=== PATIENT | female | born 1975 | race Hispanic/Latino ===

== ENCOUNTER 2017-11-05 03:15 | Emergency (ER) | payer SELFPAY ==
[2017-11-05 03:27] VITALS: RESP 16; TEMP 98.1
[2017-11-05] MEDS ORDERED: Hydrogen Peroxide 3% Soln (480ml) TP ONE (03:45)
--- NOTE | 2017-11-05 04:23 | ED PDOC ---
HPI: Psych/Substance Abuse Time Seen by Provider: 11/05/17 03:19 Chief Complaint (Nursing): Alcohol Ingestion Chief Complaint (Provider): alcohol intoxication ED Caveat: Intoxicated History Per: Patient, EMS History/Exam Limitations: intoxication Onset/Duration Of Symptoms: Unknown Modifying Factor(s): Alcohol Severity: Moderate Involuntary Hold By: Emergency Physician Additional Complaint(s): Patient is 42 year old female BIB EMS for evaluation of intoxication and head injury. She was reported to have fallen and injured head. Past Medical History Reviewed: Historical Data, Nursing Documentation, Vital Signs, Unable To Obtain Vital Signs: Last Vital Signs Temp 98.1 F 11/05/17 03:22 Pulse 96 H 11/05/17 03:22 Resp 16 11/05/17 03:22 BP 124/87 11/05/17 03:22 Pulse Ox 99 11/05/17 03:22 - Family History Family History: States: Unknown Family Hx - Allergies Allergies/Adverse Reactions: Allergies Allergy/AdvReac Type Severity Reaction Status Date / Time No Known Allergies Allergy Verified 11/05/17 03:26 Review of Systems Review Of Systems: ROS cannot be obtained secondary to pt's inabilty to answer questions. Physical Exam - Reviewed Nursing Documentation Reviewed: Yes Vital Signs Reviewed: Yes - Physical Exam Appears: Positive for: No Acute Distress Head Exam: Positive for: NORMOCEPHALIC. Negative for: ATRAUMATIC (right parieto -occipital hematoma is noted approximately 3x5cm) Skin: Positive for: Normal Color, Warm, Dry Eye Exam: Positive for: Normal appearance, EOMI, PERRL ENT: Positive for: Normal ENT Inspection Neck: Positive for: Normal, Painless ROM, Supple Cardiovascular/Chest: Positive for: Regular Rate, Rhythm Respiratory: Positive for: Normal Breath Sounds. Negative for: Crackles, Wheezing Gastrointestinal/Abdominal: Positive for: Normal Exam, Bowel Sounds, Soft. Negative for: Tenderness Back: Positive for: Normal Inspection. Negative for: L CVA Tenderness, R CVA Tenderness Extremity: Positive for: Normal ROM. Negative for: Tenderness, Pedal Edema Neurologic/Psych: Positive for: Oriented (x2), Other (speech is slurred ). Negative for: Alert, Motor/Sensory Deficits - Laboratory Results Result Diagrams: 11/05/17 04:15 11/05/17 04:15 - ECG O2 Sat by Pulse Oximetry: 99 Medical Decision Making Medical Decision Makin yo female with head injury in setting of alcohol intoxication Labs, CT Head/C Spine ordered Labs reviewed no clinically significant abnormalities with exception of elevated BAL Patient s/o to Dr Parada at 7AM pending sobriety and re-eval Disposition - Clinical Impression Clinical Impression: Alcohol abuse with intoxication - Patient ED Disposition Is Patient to be Admitted: Transfer of Care - Disposition Disposition: Transfer of Care Disposition Time: 07:00 Condition: FAIR Forms: [employer] (Romanian) Patient Signed Over To: Beth Parada
[2017-11-05 04:25] LABS: BASO % 0.4 % (0.0-2.0); HEMATOCRIT 40.9 % (34.0-47.0); LYMPH # 1.6 K/uL (1.0-4.3); LYMPH % 22.8 % (20.0-40.0); MEAN CELL VOLUME 95.7 fl (81.0-99.0); MEAN CORPUSCULAR HEMOGLOBIN 31.9 pg (27.0-31.0); MEAN CORPUSCULAR HGB CONC 33.4 g/dL (33.0-37.0); MONO # 0.3 K/uL (0.0-0.8); MONO % 4.7 % (0.0-10.0); NEUT # 5.2 K/uL (1.8-7.0); NEUT % 72.1 % (50.0-75.0); NRBC % 0.1 % (0.0-0.0); RED CELL DISTRIBUTION WIDTH 16.4 % (11.5-14.5); WHITE BLOOD COUNT 7.2 K/uL (4.8-10.8)
[2017-11-05 04:33] LABS: PARTIAL THROMBOPLASTIN TIME 36.1 Seconds (25.6-37.1)
[2017-11-05 04:38] LABS: ALB/GLOB RATIO 1.2 (1.0-2.1); ALKALINE PHOSPHATASE 97 U/L (38-126); ALT/SGPT 37 U/L (9-52); AST/SGOT 33 U/L (14-36); BLOOD UREA NITROGEN 8 mg/dl (7-17); CALCIUM 8.8 mg/dL (8.4-10.2); CARBON DIOXIDE 20 mmol/L (22-30); CHLORIDE 109 mmol/L (98-107); GFR AFRICAN-AMERICAN > 60; GLUCOSE,RANDOM 98 mg/dL (65-105); POTASSIUM 4.5 MMOL/L (3.6-5.0); SODIUM 144 mmol/l (132-148); TOTAL PROTEIN 7.9 G/DL (6.3-8.2)
[2017-11-05 04:49] LABS: ALCOHOL SERUM 386 mg/dl (0-10)
--- NOTE | 2017-11-05 07:29 | ED PDOC ---
- Laboratory Results Result Diagrams: 11/05/17 04:15 11/05/17 04:15 - ECG O2 Sat by Pulse Oximetry: 99 - Progress ED Course And Treament: Pt AAOX3, steady gait. Re-evaluation Time: 08:24 Condition: Improved Medical Decision Making Medical Decision Making: Patient signed out to me by Dr. Danis Thompson MD pending clinical sobriety. Reassess --08:39 Provider is made aware that there is a 1.5cm laceration on the hematoma of the posterior scalp. Scribe Attestation: Documented by Robinson Martinez acting as a scribe for Beth Parada MD. Provider Attestation: All medical record entries made by the Scribe were at my direction and personally dictated by me. I have reviewed the chart and agree that the record accurately reflects my personal performance of the history, physical exam, medical decision making, and the department course for this patient. I have also personally directed, reviewed, and agree with the discharge instructions and disposition. Disposition - Clinical Impression Clinical Impression: Alcohol intoxication, Scalp hematoma, Scalp laceration - POA Present On Arrival: Falls Or Trauma - Disposition Referrals: [facility] [Outside] Disposition: Routine/Home Disposition Time: 08:41 Condition: IMPROVED Additional Instructions: MOTRIN OR TYLENOL NEEDED FOR PAIN. STAPLE REMOVAL IN 5 DAYS. Instructions: Laceration (ED), Alcohol Intoxication (ED), Staple Care (ED), Hematoma (ED) Forms: [facility] (Swedish) Procedure: Wound Repair - Time Performed Time Performed: 08:39 - Procedure Procedure: Wound Repair: Laceration repair 4 cristobal placed - Consent Obtained Consent obtained: Verbal - Performed by Performed by: Attending Physician - Indications Indication(s):: Laceration - Location Location:: Posterior, Scalp
[2017-11-05 07:49] VITALS: BP 115/62; PULSE 108
[2017-11-05 08:24] VITALS: O2SAT 99
--- NOTE | 2017-11-05 08:36 | CT ---
PROCEDURE: CT HEAD WITHOUT CONTRAST. HISTORY: head injury COMPARISON: None available. TECHNIQUE: Axial computed tomography images were obtained through the head/brain without intravenous contrast. Radiation dose: Total exam DLP = mGy-cm. This CT exam was performed using one or more of the following dose reduction techniques: Automated exposure control, adjustment of the mA and/or kV according to patient size, and/or use of iterative reconstruction technique. FINDINGS: HEMORRHAGE: No intracranial hemorrhage. BRAIN: No mass effect or edema. No atrophy or chronic microvascular ischemic changes. VENTRICLES: Unremarkable. No hydrocephalus. CALVARIUM: Large right parietal scalp hematoma. PARANASAL SINUSES: Unremarkable as visualized. No significant inflammatory changes. MASTOID AIR CELLS: Unremarkable as visualized. No inflammatory changes. OTHER FINDINGS: None. IMPRESSION: Large right parietal scalp hematoma.
--- NOTE | 2017-11-05 08:37 | CT ---
PROCEDURE: CT Cervical Spine without contrast HISTORY: <neck injury> COMPARISON: None available. TECHNIQUE: Axial computed tomography images were obtained of the cervical spine without the use of intravenous contrast. Coronal and sagittal reformatted images were created and reviewed. Radiation dose: Total exam DLP = 494 mGy-cm. This CT exam was performed using one or more of the following dose reduction techniques: Automated exposure control, adjustment of the mA and/or kV according to patient size, and/or use of iterative reconstruction technique. FINDINGS: VERTEBRAE: No fracture. Normal alignment. No destructive bony lesion. DISCS/SPINAL CANAL/NEURAL FORAMINA: No significant central canal or neural foraminal stenosis. Discs heights are grossly preserved. PARASPINAL SOFT TISSUES: Unremarkable. OTHER FINDINGS: None. IMPRESSION: Unremarkable CT of the cervical spine.
== END 2017-11-05 09:29 | disposition home or self-care (01) ==
LOC: H.ER 03:15
DX: F10.129 Alcohol abuse with intoxication, unspecified (principal); S01.01XA Laceration without foreign body of scalp, initial encounter; W19.XXXA Unspecified fall, initial encounter; Y92.89 Other specified places as the place of occurrence of the external cause
CPT/HCPCS: 12001; 70450; 72125; 80053; 81025; 82948; 85025; 85610; 85730; 96374; 99284; G0480; J2060